=== PATIENT | male | born 1945 | race Caucasian/White ===

== ENCOUNTER 2017-04-06 06:35 | Day surgery (SDC) | payer OTHER ==
[~2017-04-06] VITALS: Ht 175.3 cm; Wt 84.1 kg
[~2017-04-06 06:35] MED LIST: ASPI81TA2 PO; BACL10TA PO; BENA40TA3 PO; CALC500T62 PO; DOCU250C91 PO; FENO54TA6 PO; FLUT1DIS3 IH; GABA-529 PO; HYDR-3965 PO; METF10002 PO; METF850T2 PO; NAPR500T3 PO; OMEP10CA41 PO; PROM12.528 PR; SODIUM CHLORIDE 0.9% 1,000 ML IV ONE; TRAMADOL PO; VITC PO; ZOLP10TA6 PO
[2017-04-06] MEDS ORDERED: SODIUM CHLORIDE 0.9% 1,000 ML IV ONE (06:56)
[2017-04-06 07:37] LABS: GLUCOSE COMMENT 1 Repeated; GLUCOSE,POINT OF CARE 112 MG/DL (70-110)
[2017-04-06] MEDS ORDERED: TRAM50TA4 PO (07:38)
[2017-04-06] MEDS ORDERED: PANT40TA25 PO (07:38)
[2017-04-06] MEDS ORDERED: BENA20 PO (07:38)
[2017-04-06] MEDS ORDERED: OXYC10 PO (07:38)
[2017-04-06] MEDS ORDERED: LIDO45CR TP (07:38)
[2017-04-06] MEDS ORDERED: DOCU250C21 PO (07:38)
[2017-04-06] MEDS ORDERED: SIMV-259 PO (07:38)
[2017-04-06] MEDS ORDERED: NALO25TA PO (07:38)
[2017-04-06] MEDS ORDERED: GABA-531 PO (07:38)
[2017-04-06] MEDS ORDERED: RANI150T7 PO (07:38)
[2017-04-06] MEDS ORDERED: MONT10TA21 PO (07:38)
[2017-04-06] MEDS ORDERED: INSREG SQ (07:38)
[2017-04-06] MEDS ORDERED: OLOP5DRO OP (07:38)
[2017-04-06] MEDS ORDERED: BACL10TA PO (07:38)
[2017-04-06] MEDS ORDERED: METF500T4 PO (07:38)
[2017-04-06] MEDS ORDERED: MORP15 PO (07:38)
[2017-04-06] MEDS ORDERED: SYMB8060 IH (07:38)
[2017-04-06] MEDS ORDERED: TEMA15CA PO (07:38)
[2017-04-06] MEDS ORDERED: ALBU8.5H IH (07:38)
[2017-04-06] MEDS ORDERED: CHOL200018 PO (07:38)
[2017-04-06] MEDS ORDERED: FENO48TA15 PO (07:38)
[2017-04-06] MEDS ORDERED: MIDAZOLAM HCL 2 MG/2 ML VIAL ONE (07:48)
[2017-04-06] MEDS ORDERED: FentaNYL CITRATE-PF 100 MCG/2 ML VIAL ONE (07:48)
[2017-04-06] MEDS ORDERED: MethylPREDNISolone SOD SUCC 125 MG/2 ML VIAL IVP ONE (09:00)
[2017-04-06] MEDS ORDERED: MethylPREDNISolone SOD SUCC 125 MG/2 ML VIAL ONE (10:09)
[2017-04-06] MEDS ORDERED: LIDOCAINE HCL 2% 30 ML JELLY TP ONE (17:01)
[2017-04-06] MEDS ORDERED: ALBUTEROL SULFATE 2.5 MG/0.5 ML NEB SOLUTION NEB ONE (17:01)
[2017-04-06] MEDS ORDERED: LIDOCAINE HCL 4% 50 ML SOLUTION TP ONE (17:01)
[2017-04-06] MEDS ORDERED: BENZOCAINE 20% 50 MCG/SPRAY 57 GM TP ONE (17:01)
[2017-04-06] MEDS ORDERED: OXYGEN THERAPY IH SCH (20:00)
== END 2017-04-06 11:45 | disposition home or self-care (01) ==
LOC: SURGERY 06:35
PROVIDERS: ATTEND Internal Medicine Critical Care Medicine
DX: J38.4 Edema of larynx (principal); B37.0 Candidal stomatitis; J44.9 Chronic obstructive pulmonary disease, unspecified; E11.9 Type 2 diabetes mellitus without complications; M54.9 Dorsalgia, unspecified; Z79.4 Long term (current) use of insulin; Z98.890 Other specified postprocedural states; Z86.19 Personal history of other infectious and parasitic diseases
CPT/HCPCS: 31623; 31624; 31625; 71010; 82962; 87015; 87070; 87101; 87205; 87220; 93005; J2250; J2930; J3010; J7030; 87147

== ENCOUNTER → 2021-06-04 | Outpatient (CLI) | payer MEDICARE, OTHER ==
[~2021-06-04] MED LIST changes: +ALBU8.5H8 IH; -ASPI81TA2 PO; +ASPI81TA39 PO; +BENA20TA11 PO; -BENA40TA3 PO; -CALC500T62 PO; +CHOL200018 PO; +DOCU-378 PO; -DOCU250C91 PO; +FENO48TA20 PO; -FENO54TA6 PO; -FLUT1DIS3 IH; +GABA-1181 PO; -GABA-529 PO; -HYDR-3965 PO; +INSREG SQ; +LIDO45CR TP; +METF-960 PO; -METF10002 PO; -METF850T2 PO; +MONT-35 PO; +MORP15 PO; +NALO25TA4 PO; -NAPR500T3 PO; +OLOP5DRO15 OP; -OMEP10CA41 PO; +OXYC10TA59 PO; +PANT-31 PO; -PROM12.528 PR; +RANI150T7 PO; +SIMV-259 PO; -SODIUM CHLORIDE 0.9% 1,000 ML IV ONE; +SYMB8060 IH; +TEMA15CA PO; +TRAM50TA4 PO; -TRAMADOL PO; -VITC PO; -ZOLP10TA6 PO
[2021-06-04 08:56] LABS: PROTHROMBIN TIME 10.9 SEC (9.4-11.6)
[2021-06-04 09:01] LABS: HEMOGLOBIN A1C 6.6 % (3.8-5.6)
[2021-06-04 09:09] LABS: ALBUMIN 3.4 g/dL (3.4-5.0); BILIRUBIN,TOTAL 0.4 mg/dL (0.1-1.0); CALCIUM, TOTAL 8.3 mg/dL (8.8-10.5); CREATININE 1.24 mg/dL (0.60-1.30); POTASSIUM 4.8 mmol/L (3.5-5.1); THYROID STIMULATING HORMONE 1.34 uIU/mL (0.36-3.74); TOTAL PROTEIN, SERUM 6.7 g/dL (6.4-8.2)
[2021-06-04 09:15] LABS: PROSTATE SPECIFIC ANTIGEN 1.55 ng/mL (0.00-4.00)
== END | disposition home or self-care (01) ==
LOC: LABMN 08:08
PROVIDERS: ATTEND Internal Medicine Interventional Cardiology
DX: I25.10 Atherosclerotic heart disease of native coronary artery without angina pectoris (principal); R06.02 Shortness of breath; I10 Essential (primary) hypertension; I21.4 Non-ST elevation (NSTEMI) myocardial infarction; R73.9 Hyperglycemia, unspecified; R33.9 Retention of urine, unspecified; N40.0 Benign prostatic hyperplasia without lower urinary tract symptoms
CPT/HCPCS: 80053; 83036; 83880; 84153; 84443; 85610